=== PATIENT | female | born 1990 | race African-American/Black ===

== ENCOUNTER 2018-01-11 22:58 | Emergency (ER) | payer SELFPAY ==
[~2018-01-11] VITALS: Ht 165.1 cm; Wt 91.2 kg
--- NOTE | 2018-01-12 00:02 | PHYS DOC ---
Adult General Chief Complaint Chief Complaint: SORE THROAT HPI HPI 27-year-old female presents with sore throat for 1 day. The patient is felt like she has a sore throat worse with swallowing all day today. She also has felt feverish. She measured a fever of up to 103. He has taken both Tylenol and ibuprofen for the fever. In the ED her temperature is 100.3. The patient has no known sick contacts. She feels more tired than usual. She has been trying to stay hydrated today. She has no other complaints. Review of Systems Review of Systems Constitutional: Has fever and chills [] Eyes: Denies change in visual acuity, redness, or eye pain [] HENT: Moderate sore throat [] Respiratory: Denies cough or shortness of breath [] Cardiovascular: No additional information not addressed in HPI [] GI: Denies abdominal pain, nausea, vomiting, bloody stools or diarrhea [] : Denies dysuria or hematuria [] Musculoskeletal: Denies back pain or joint pain [] Integument: Denies rash or skin lesions [] Neurologic: Denies headache, focal weakness or sensory changes [] Endocrine: Denies polyuria or polydipsia [] All other systems were reviewed and found to be within normal limits, except as documented in this note. Allergies Allergies Allergies Coded Allergies Type Severity Reaction Last Updated Verified No Known Drug Allergies 01/11/18 No Physical Exam Physical Exam Constitutional: Well developed, well nourished, no acute distress, non-toxic appearance. [] HENT: Normocephalic, atraumatic, bilateral external ears normal, oropharynx erythematous, no exudates, nose normal. [] Eyes: PERRLA, EOMI, conjunctiva normal, no discharge. [] Neck: Normal range of motion, no tenderness, supple, no stridor. [] Cardiovascular:Heart rate regular rhythm, no murmur [] Lungs & Thorax: Bilateral breath sounds clear to auscultation [] Abdomen: Bowel sounds normal, soft, no tenderness, no masses, no pulsatile masses. [] Skin: Warm, dry, no erythema, no rash. [] Back: No tenderness, no CVA tenderness. [] Extremities: No tenderness, no cyanosis, no clubbing, ROM intact, no edema. [] Neurologic: Alert and oriented X 3, normal motor function, normal sensory function, no focal deficits noted. [] Psychologic: Affect normal, judgement normal, mood normal. [] EKG EKG [] Radiology/Procedures Radiology/Procedures [] Course & Med Decision Making Course & Med Decision Making Pertinent Labs and Imaging studies reviewed. (See chart for details) Patient's rapid strep is positive. I will treat her with penicillin V 500mg BID for 10 days. [] Dragon Disclaimer Dragon Disclaimer This electronic medical record was generated, in whole or in part, using a voice recognition dictation system. HUGO DOWNS DO Jan 12, 2018 00:02
[2018-01-12] MEDS ORDERED: PENI500T PO (00:05)
[2018-01-12 00:20] VITALS: BP 113/68
[2018-01-12] MEDS ORDERED: PENICILLIN V K 250 MG TABLET. PO ONE (00:30)
== END 2018-01-12 00:25 | disposition home or self-care (01) ==
LOC: ER 22:58
DX: J02.0 Streptococcal pharyngitis (principal)
CPT/HCPCS: 87880; 99283

== ENCOUNTER 2018-05-06 14:54 | Emergency (ER) | payer SELFPAY ==
[~2018-05-06] VITALS: Ht 167.6 cm; Wt 90.7 kg
[~2018-05-06 14:54] MED LIST: PENI500T PO
[2018-05-06] MEDS ORDERED: ALBU8.5H8 INH (16:34)
[2018-05-06] MEDS ORDERED: BENZ100C PO (16:34)
[2018-05-06] MEDS ORDERED: AMOX500C PO (16:34)
--- NOTE | 2018-05-06 16:34 | PHYS DOC ---
Past History Past Medical History: No Pertinent History Past Surgical History: No Surgical History Smoking: Cigarettes Alcohol Use: None Drug Use: Marijuana Adult General Chief Complaint Chief Complaint: SORE THROAT HPI HPI Patient is a 27 year old female who presents with complaining of sore throat and left earache with nonproductive cough for 6 days that gradually getting force. Patient states she had subjective fever and nausea without urinary symptoms, sick contact, chest pain, shortness of breath. Review of Systems Review of Systems Constitutional: Reports subjective fever and chills Eyes: Denies change in visual acuity, redness, or eye pain [] HENT: Reports nasal congestion, sore throat, earache Respiratory: Reports cough Cardiovascular: No additional information not addressed in HPI [] GI: Denies abdominal pain, vomiting, bloody stools or diarrhea [] : Denies dysuria or hematuria [] Musculoskeletal: Denies back pain or joint pain [] Integument: Denies rash or skin lesions [] Neurologic: Denies headache, focal weakness or sensory changes [] Endocrine: Denies polyuria or polydipsia [] All other systems were reviewed and found to be within normal limits, except as documented in this note. Allergies Allergies Allergies Coded Allergies Type Severity Reaction Last Updated Verified No Known Drug Allergies 01/11/18 No Physical Exam Physical Exam Constitutional: Well developed, well nourished, mild distress, non-toxic appearance. [] HENT: Normocephalic, atraumatic, bilateral external ears normal, oropharynx moist, pharyngeal erythema, no oral exudates, nose normal. [] Eyes: PERRLA, EOMI, conjunctiva normal, no discharge. [] Neck: Normal range of motion, no tenderness, supple, no stridor. [] Cardiovascular:Heart rate regular rhythm, no murmur [] Lungs & Thorax: Bilateral breath sounds clear to auscultation [] Abdomen: Bowel sounds normal, soft, no tenderness, no masses, no pulsatile masses. [] Skin: Warm, dry, no erythema, no rash. [] Back: No tenderness, no CVA tenderness. [] Extremities: No tenderness, no cyanosis, no clubbing, ROM intact, no edema. [] Neurologic: Alert and oriented X 3, normal motor function, normal sensory function, no focal deficits noted. [] Psychologic: Affect normal, judgement normal, mood normal. [] Current Patient Data Vital Signs Vital Signs Date Time Temp Pulse Resp B/P (MAP) Pulse Ox O2 Delivery O2 Flow Rate FiO2 05/06/18 15:22 98.4 88 22 97 Room Air Lab Results Laboratory Tests Test 05/06/18 16:00 Group A Streptococcus Rapid Negative (NEGATIVE) EKG EKG [] Radiology/Procedures Radiology/Procedures [] Course & Med Decision Making Course & Med Decision Making Pertinent Labs reviewed. (See chart for details) discharge: I've spoken with the patient and/or caregivers. I've explained the patient's condition, diagnosis and treatment plan based on information available to me at this time. I've answered the patient's and/or caregivers questions and addressed any concerns. The patient and/or caregivers have a good understanding the patient's diagnosis, condition and treatment plan as can be expected at this point. Vital signs have been stabilized. The patient's condition is stable for discharge from the emergency department. The patient will pursue further outpatient evaluation with her primary care provider or other designated consulting physician as outlined in the discharge instructions. Patient and/or caregivers are agreeable to this plan of care and follow-up instructions have been explained in detail. The patient and/or caregivers have received these instructions in written format and expressed understanding of these discharge instructions. The patient and her caregivers are aware that if any significant change in condition or worsening of symptoms should prompt him to immediately return to this of the closest emergency department. If an emergent department is not readily available I would encourage him to call 911. Naheed Disclaimer Dragon Disclaimer This electronic medical record was generated, in whole or in part, using a voice recognition dictation system. Departure Departure: Impression: Primary Impression: Upper respiratory infection Additional Impressions: Tobacco abuse Tobacco abuse counseling Disposition: HOME, SELF-CARE (at 1632) Condition: STABLE Referrals: PCP,NO (PCP) Patient Instructions: Smoking Cessation, Tips For Success, Upper Respiratory Infection, Adult Additional Instructions: Drink plenty of liquids Follow-up with your primary care physician in 3-5 days Return to ER if not getting better Scripts Albuterol Sulfate (PROAIR HFA INHALER) 8.5 Gm Hfa.aer.ad 2 PUFF INH PRN Q6HRS PRN for SHORTNESS OF BREATH, #1 INHALER 0 Refills Prov: EDDIE KELLY MD 05/06/18 Benzonatate (TESSALON PERLE) 100 Mg Capsule 1 CAP PO TID, #21 CAP Prov: EDDIE KELLY MD 05/06/18 Amoxicillin (AMOXICILLIN) 500 Mg Capsule 1 CAP PO Q8HRS, #30 CAP Prov: EDDIE KELLY MD 05/06/18 Problem Qualifiers EDDIE KELLY MD May 06, 2018 16:34
[2018-05-06 16:58] VITALS: BP 150/89
== END 2018-05-06 17:01 | disposition home or self-care (01) ==
LOC: ER 14:54
DX: J06.9 Acute upper respiratory infection, unspecified (principal); F17.210 Nicotine dependence, cigarettes, uncomplicated; Z71.6 Tobacco abuse counseling
CPT/HCPCS: 87070; 87880; 99283

== ENCOUNTER 2018-06-19 09:59 | Emergency (ER) | payer SELFPAY ==
[~2018-06-19] VITALS: Ht 167.6 cm; Wt 90.7 kg
[~2018-06-19 09:59] MED LIST changes: +ALBU8.5H8 INH; +AMOX500C PO; +BENZ100C PO
[2018-06-19] MEDS ORDERED: MAGN296S9 PO (11:00)
[2018-06-19] MEDS ORDERED: IBUP800T19 PO (11:00)
[2018-06-19] MEDS ORDERED: HYDR30CR61 TP (11:00)
--- NOTE | 2018-06-19 11:00 | PHYS DOC ---
Past History Past Medical History: No Pertinent History Past Surgical History: No Surgical History Smoking: Cigarettes Alcohol Use: None Drug Use: Methamphetamine Adult General Chief Complaint Chief Complaint: HEMORRHOIDS [facility] HPI Patient is a 27 year old female who presents with complaining of hemorrhoids and blood in her stool. Patient complaining of rectal bleeding after having problems presented for the last 3 weeks and hemorrhoidal tag that getting erythematous and inflamed and painful. Patient states she using hemorrhoid prep H without improvement of her condition. Patient states she has about 2 episodes of bowel movement per week and having drop of bright red blood after her bowel movement. Patient states is painful to sit down or having bowel movements because of the painful hemorrhoidal tag. She denies abdominal pain, nausea and vomiting, fever and chills, . Review of Systems Review of Systems Constitutional: Denies fever or chills [] Eyes: Denies change in visual acuity, redness, or eye pain [] HENT: Denies nasal congestion or sore throat [] Respiratory: Denies cough or shortness of breath [] Cardiovascular: No additional information not addressed in HPI [] GI: Denies abdominal pain, nausea, vomiting, bloody stools or diarrhea, reports constipation [] : Denies dysuria or hematuria [] Musculoskeletal: Denies back pain or joint pain [] Integument: Denies rash or skin lesions [] Neurologic: Denies headache, focal weakness or sensory changes [] Endocrine: Denies polyuria or polydipsia [] All other systems were reviewed and found to be within normal limits, except as documented in this note. Allergies Allergies Allergies Coded Allergies Type Severity Reaction Last Updated Verified No Known Drug Allergies 01/11/18 No Physical Exam Physical Exam Constitutional: Well developed, well nourished, mild distress, non-toxic appearance. [] HENT: Normocephalic, atraumatic Eyes: PERRLA, EOMI, conjunctiva normal, no discharge. [] Neck: Normal range of motion, no tenderness, supple, no stridor. [] Cardiovascular:Heart rate regular rhythm, no murmur [] Lungs & Thorax: Bilateral breath sounds clear to auscultation [] Abdomen: Bowel sounds normal, soft, no tenderness, no masses, no pulsatile masses. Rectal exam with present of roller staker showed hemorrhoidal tag at 6:00 with tenderness and edema without sign of thrombosed , painful digital exam without sign of anal fissure. Skin: Warm, dry, no erythema, no rash. [] Back: No tenderness, no CVA tenderness. [] Extremities: No tenderness, no cyanosis, no clubbing, ROM intact, no edema. [] Neurologic: Alert and oriented X 3, normal motor function, normal sensory function, no focal deficits noted. [] Psychologic: Affect normal, judgement normal, mood normal. [] Current Patient Data Vital Signs Vital Signs Date Time Temp Pulse Resp B/P (MAP) Pulse Ox O2 Delivery O2 Flow Rate FiO2 06/19/18 10:25 98.5 EKG EKG [] Radiology/Procedures Radiology/Procedures [] Course & Med Decision Making Course & Med Decision Making Evaluation of patient in ER showed 27-year-old female patient with complaining of and rectal bleeding and pain for 3 weeks that did not get better with over- the-counter medication. Patient did not have thrombosed hemorrhoid in rectal exam with present of roller staker. Patient instructed to avoid of constipation and to not use any suppository and uses sitz bath. Dragon Disclaimer Dragon Disclaimer This electronic medical record was generated, in whole or in part, using a voice recognition dictation system. Departure Departure: Impression: Primary Impression: External bleeding hemorrhoids Additional Impressions: Inflamed external hemorrhoid Tobacco abuse Tobacco abuse counseling Constipation Disposition: 01 HOME, SELF-CARE (at 1056) Condition: STABLE Referrals: PCP,NO (PCP) Patient Instructions: Constipation, Adult, Hemorrhoids, Sitz Bath, Smoking Cessation, Tips For Success Additional Instructions: Drink plenty of liquids Follow-up with your primary care physician in 3-5 days Return to ER if not getting better Take sitz baths frequently Scripts Magnesium Citrate (MAGNESIUM CITRATE) 296 Ml Solution 148 ML PO ONCE PRN for constipation, #296 ML Prov: EDDIE KELLY MD 06/19/18 Hydrocortisone (ANUSOL-HC) 30 Gm Cream..g. 1 AGNIESZKA TP BID for hemorrhoid, #30 GM Prov: EDDIE KELLY MD 06/19/18 Ibuprofen (IBUPROFEN) 800 Mg Tablet 1 TAB PO TID for pain, #30 TAB Prov: EDDIE KELLY MD 06/19/18 Problem Qualifiers EDDIE KELLY MD Jun 19, 2018 11:00
== END 2018-06-19 11:03 | disposition home or self-care (01) ==
LOC: ER 09:59
DX: K64.4 Residual hemorrhoidal skin tags (principal); K59.00 Constipation, unspecified; F17.210 Nicotine dependence, cigarettes, uncomplicated; Z71.6 Tobacco abuse counseling
CPT/HCPCS: 99283